=== PATIENT | female | born 1970 | race Caucasian/White ===

== ENCOUNTER 2016-10-17 22:19 | Emergency (ER) | payer MEDICAID, OTHER ==
[2016-10-17 22:23] VITALS: TEMP 97.7; O2SAT 96
--- NOTE | 2016-10-17 22:40 | EDPHY ---
H & P Stated Complaint: chest pain onset 1599 Time Seen by Provider: 10/17/16 22:32 HPI/ROS: CHIEF COMPLAINT: Chest pain. HISTORY OF PRESENT ILLNESS: The patient is a 46-year-old female who presents with upper left 9/10 chest pain since 1600 today. Chest pain is squeezing and stabbing in nature. It is worsened with deep breathing and movement and does not radiate. She has taken 2 Naproxen for the pain which did not help. The pain has been worsening since onset. She has a history of similar symptoms 2 months ago and had an echocardiogram performed. She admits back pain since yesterday. No fever, chills, cough, shortness of breath, palpitations, vomiting, diarrhea, urinary complaints, headache, lightheadedness. History obtained via family member translating at bedside. She has no significant family history. REVIEW OF SYSTEMS: Aside from elements discussed in the HPI, a comprehensive 10-point review of systems was reviewed and is negative. PAST MEDICAL HISTORY: Hypertension. SOCIAL HISTORY: Works at [employer], nonsmoker. VITAL SIGNS: Reviewed by me GENERAL: Well-developed, well-nourished, resting comfortably in no respiratory distress. HEENT: Atraumatic. Eyes: No icterus, no injection. Mouth: moist mucous membranes. No erythema or lesions. Neck: supple with no adenopathy. LUNGS: Clear to auscultation bilaterally, no wheezes, rhonchi or rales. CARDIAC: Regular rate and rhythm, no rubs, murmurs or gallops. ABDOMEN: Soft, nontender, nondistended, bowel sounds normal. BACK: No CVA tenderness. EXTREMITIES: No trauma. No edema. Range of motion is normal throughout. NEURO: Alert and oriented, grossly nonfocal. SKIN: Warm and dry, no rash. PSYCHIATRIC: Normal mentation, no agitation. Portions of this note were transcribed by a nurses medical assistants phlebotomists. I personally performed a history, physical exam, medical decision making, and confirmed accuracy of information the transcribed note. Source: Patient Exam Limitations: Language barrier - Personal History LMP (Females 10-55): Over 28 Days Ago Current Tetanus/Diphtheria Vaccine: Yes Tetanus Vaccine Date: 2010 - Medical/Surgical History Hx Asthma: No Hx Chronic Respiratory Disease: No Hx Diabetes: No Hx Cardiac Disease: No Hx Renal Disease: No Hx Cirrhosis: No Hx Alcoholism: No Hx HIV/AIDS: No Hx Splenectomy or Spleen Trauma: No Other PMH: PMHx: HTN. PSHx: Gallbladder removed - Social History Smoking Status: Never smoked Constitutional: Initial Vital Signs Temperature (C) 36.5 C 10/17/16 22:19 Heart Rate 88 10/17/16 22:19 Respiratory Rate 16 10/17/16 22:19 Blood Pressure 173/97 H 10/17/16 22:19 O2 Sat (%) 96 10/17/16 22:19 O2 Delivery Mode Room Air Allergies/Adverse Reactions: No Known Allergies Allergy (Verified 09/07/14 16:02) Home Medications: Medication Instructions Recorded Lisinopril [Zestril 5 mg (*)] 5 mg PO DAILY #30 tab 09/07/14 Medical Decision Making - Diagnostics Imaging: X-ray chest was obtained. I viewed the images myself on the PACS system. My interpretation of the images is: patient rotated. Cardiomyopathy. The radiologist interpretation is pending at this time. I discussed the x-ray findings with the patient. ED Course/Re-evaluation: An IV was established and labs ordered. Chest x-ray and EKG ordered. Patient's evaluation is reassuring. She has negative troponin despite 6 hours of pain. D-dimer is negative. Chest x-ray reveals no changes from previous. Had clear 5 with the patient again that she has in fact had an echocardiogram performed at [facility] to evaluate cardio megaly. She tells me she was called by her primary care physician about 2 weeks ago and told that everything was fine. Differential Diagnosis: After history and physical examination, the differential for chest pain was considered, including but not limited to, myocardial ischemia, acute coronary syndrome, pulmonary embolus, chest wall pain, pleural inflammation and pulmonary infectious causes. - Data Points Laboratory Results: Laboratory Results 10/17/16 23:11 10/17/16 23:11 10/17/16 23:11 WBC 8.69 10^3/uL (3.80-9.50) RBC 4.51 10^6/uL (4.18-5.33) Hgb 11.8 L g/dL (12.6-16.3) Hct 35.9 L % (38.0-47.0) MCV 79.6 L fL (81.5-99.8) MCH 26.2 L pg (27.9-34.1) MCHC 32.9 g/dL (32.4-36.7) RDW 15.0 % (11.5-15.2) Plt Count 373 10^3/uL (150-400) MPV 9.8 fL (8.7-11.7) Neut % (Auto) 58.4 % (39.3-74.2) Lymph % (Auto) 30.7 % (15.0-45.0) [place] % (Auto) 7.4 % (4.5-13.0) Eos % (Auto) 3.1 % (0.6-7.6) Baso % (Auto) 0.2 L % (0.3-1.7) Nucleat RBC Rel Count 0.0 % (0.0-0.2) Absolute Neuts (auto) 5.07 10^3/uL (1.70-6.50) Absolute Lymphs (auto) 2.67 10^3/uL (1.00-3.00) Absolute Monos (auto) 0.64 10^3/uL (0.30-0.80) Absolute Eos (auto) 0.27 10^3/uL (0.03-0.40) Absolute Basos (auto) 0.02 10^3/uL (0.02-0.10) Absolute Nucleated RBC 0.00 10^3/uL (0-0.01) Immature Gran % 0.2 % (0.0-1.1) Immature Gran # 0.02 10^3/uL (0.00-0.10) D-Dimer < 0.27 ug/mLFEU (0.00-0.50) Sodium 141 mEq/L (134-144) Potassium 3.4 L mEq/L (3.5-5.2) Chloride 105 mEq/L (97-110) Carbon Dioxide 24 mEq/l (22-31) Anion Gap 12 mEq/L (8-16) BUN 11 mg/dL (7-23) Creatinine 0.5 L mg/dL (0.6-1.0) Estimated GFR > 60 Glucose 131 H mg/dL (70-100) Calcium 8.3 L mg/dL (8.5-10.4) Total Bilirubin 0.4 mg/dL (0.1-1.4) Conjugated Bilirubin 0.2 mg/dL (0.0-0.5) Unconjugated Bilirubin 0.2 mg/dL (0.0-1.1) AST 26 IU/L (14-46) ALT 37 IU/L (9-52) Alkaline Phosphatase 83 IU/L (38-126) Troponin I < 0.012 ng/mL (0-0.034) Total Protein 7.3 g/dL (6.3-8.2) Albumin 3.8 g/dL (3.5-5.0) Lipase 142.0 IU/L (23-300) Medications Given: Discontinued Medications Aspirin (Aspirin) 324 mg PO EDNOW ONE Stop: 10/17/16 22:48 Last Admin: 10/17/16 23:15 Dose: 324 mg Ketorolac Tromethamine (Toradol) 30 mg IVP EDNOW ONE Stop: 10/17/16 22:49 Last Admin: 10/17/16 23:15 Dose: 30 mg Departure - Departure Disposition: Home, Routine, Self-Care Clinical Impression: Chest pain Qualifiers: Chest pain type: unspecified Qualifier Code: (R07.9) Chest pain, unspecified Condition: Good Instructions: Chest Pain (ED) Additional Instructions: Please follow up with your primary care physician at [facility]. You may use hydrocodone for severe pain. I recommend Ibuprofen (Motrin, Advil) or Naproxen Sodium (Aleve) for mild pain and anti-inflammatory effects. You may take either one, but do not take both. Your dose is: Ibuprofen 600 mg every 6-8 hours with food. OR Naproxen Sodium (Aleve) 220 mg every 12 hours. Please call [facility] tomorrow. Let them know that I discussed your case with Dr. Mendez, who wanted you to be seen on an urgent basis. Referrals: Adrienne Fernandez MD [Primary Care Provider] - As per Instructions Bert Mendez MD [Medical Doctor] - 1-2 days without fail (Call for an urgent appointment. Be sure they know that I discussed your course with Dr. Bert Mendez.) Report Scribed for: Sharri Shaw Report Scribed by: Gage Finney Date of Report: 10/17/16 Time of Report: 22:35
[2016-10-17] MEDS ORDERED: ASPIRIN 81 MG CHEWABLE TAB PO ONE (22:47)
[2016-10-17] MEDS ORDERED: KETOROLAC 30 MG/1 ML SDV IVP ONE (22:48)
--- NOTE | 2016-10-17 22:49 | CPEKG ---
Heart Rate: 79 RR Interval: 759 P-R Interval: 160 QRSD Interval: 94 QT Interval: 376 QTC Interval: 432 P [place]: 44 QRS [place]: 7 T Wave [place]: 33 EKG Severity - NORMAL ECG - EKG Impression: SINUS RHYTHM Electronically Signed By: Sharri Shaw 18-Oct-2016 00:11:15
[2016-10-17 23:20] LABS: % IMMATURE GRANULYOCYTES 0.2 % (0.0-1.1); ABSOLUTE IMMATURE GRANULOCYTES 0.02 10^3/uL (0.00-0.10); ADD DIFF? NO; ADD MORPH? NO; ADD SCAN? NO; ATYPICAL LYMPHOCYTE FLAG 10 (0-99); FRAGMENT RBC FLAG 0 (0-99); HEMATOCRIT 35.9 % (38.0-47.0); HEMOGLOBIN 11.8 g/dL (12.6-16.3); LEFT SHIFT FLG 0 (0-99); LIPEMIA HEMOLYSIS FLAG 80 (0-99); MEAN CELL HEMOGLOBIN 26.2 pg (27.9-34.1); MEAN CELL HEMOGLOBIN CONCENTR. 32.9 g/dL (32.4-36.7); MEAN CELL VOLUME 79.6 fL (81.5-99.8); MEAN PLATELET VOLUME 9.8 fL (8.7-11.7); PLATELET CLUMPS FLAG 0 (0-99); PLATELET COUNT 373 10^3/uL (150-400); RED BLOOD CELL COUNT 4.51 10^6/uL (4.18-5.33)
[2016-10-17 23:30] LABS: ALANINE AMINOTRANSFERASE 37 IU/L (9-52); ALBUMIN 3.8 g/dL (3.5-5.0); ALKALINE PHOSPHATASE 83 IU/L (38-126); ANION GAP 12 mEq/L (8-16); ASPARTATE AMINOTRANSFERASE 26 IU/L (14-46); BILIRUBIN,TOTAL 0.4 mg/dL (0.1-1.4); BILIRUBIN-CONJUGATED 0.2 mg/dL (0.0-0.5); BILIRUBIN-UNCONJUGATED 0.2 mg/dL (0.0-1.1); CALCIUM 8.3 mg/dL (8.5-10.4); CARBON DIOXIDE 24 mEq/l (22-31); CHLORIDE 105 mEq/L (97-110); CREATININE 0.5 mg/dL (0.6-1.0); GLOMERULAR FILTRATION RATE > 60; GLUCOSE 131 mg/dL (70-100); POTASSIUM 3.4 mEq/L (3.5-5.2); SODIUM 141 mEq/L (134-144); TOTAL PROTEIN 7.3 g/dL (6.3-8.2)
--- NOTE | 2016-10-17 23:30 | DX ---
Chest, Two Views 2229 hours History: Chest pain. Comparison: May 2016 Findings: Cardiac silhouette is within normal range. No pneumonia, congestive heart failure, pleura l effusion, or pneumothorax. Impression: No acute pulmonary disease.
[2016-10-17 23:41] LABS: TROPONIN I < 0.012 ng/mL (0-0.034)
[2016-10-18] MEDS ORDERED: HYDROCOD/APAP 5/325 PREPACK#6 BTL TAKEHOME ONE (00:04)
[2016-10-18] MEDS ORDERED: HYDROCODONE/APAP 5/325 TAB PO ONE (00:05)
[2016-10-18 00:33] VITALS: BP 133/72; PULSE 79; RESP 14
== END 2016-10-18 00:33 | disposition home or self-care (01) ==
DX: R07.9 Chest pain, unspecified (principal); I10 Essential (primary) hypertension
CPT/HCPCS: 96374; J1885

== ENCOUNTER 2017-04-06 10:55 | Emergency (ER) | payer OTHER ==
--- NOTE | 2017-04-06 11:00 | EDPHY ---
H & P HPI/ROS: HPI CHIEF COMPLAINT: Left knee pain, right shoulder pain status post mechanical trip and fall at work yesterday HISTORY OF PRESENT ILLNESS: This patient very pleasant 46-year-old female, she presents emergency room with left knee pain, right shoulder pain after she fell at work yesterday. She works at [employer]. She tripped over a box landing on her left knee. When she went to get up she pushed herself up with her right arm and felt shoulder pain. She now has left knee pain and right shoulder pain. She did take ibuprofen last night with relief. Decided come the emergency room today due to ongoing pain. She is able to ambulate without any difficulty. She has full range of motion of her left knee and right shoulder. Has pain with range of motion of both the left knee and right shoulder. No other areas of injury. Andorran-speaking only. Son at bedside speaks Montenegrin and [place]. Past Medical History: Hypertension Past Surgical History: No recent surgery Social History: Denies daily use of drugs alcohol tobacco products, lives locally, son at bedside. Family History: Noncontributory ROS REVIEW OF SYSTEMS: A comprehensive 10 point review of systems is otherwise negative aside from elements mentioned in the history of present illness. Exam Constitutional appears well nontoxic, triage nursing summary reviewed, vital signs reviewed, awake/alert. Eyes normal conjunctivae and sclera, EOMI, PERRLA. HENT normal inspection, atraumatic, moist mucus membranes, no epistaxis, neck supple/ no meningismus, no raccoon eyes. Respiratory clear to auscultation bilaterally, normal breath sounds, no respiratory distress, no wheezing. Cardiovascular rate normal, regular rhythm, no murmur, no edema, distal pulses normal. Gastrointestinal soft, non-tender, no rebound, no guarding, normal bowel sounds, no distension, no pulsatile mass. Genitourinary no CVA tenderness. Musculoskeletal tender palpation over the anterior left knee, no significant swelling, no bony crepitus, distally neurovascular intact, full range of motion , negative anterior-posterior drawer sign, no clicking, tender palpation over the lateral right shoulder with range of motion fully intact, distally neurovascular intact, axillary nerve intact, no signs of swelling. no midline vertebral tenderness, full range of motion, no calf swelling, no tenderness of extremities, no meningismus, good pulses, neurovascularly intact. Skin pink, warm, & dry, no rash, skin atraumatic. Neurologic awake, alert and oriented x 3, AAOx3, moves all 4 extremities equally, motor intact, sensory intact, CN II-XII intact, normal cerebellar, normal vision, normal speech. Psychiatric normal mood/affect. Heme/Lymph/Immune no lymphadenopathy. Differential Diagnosis: Includes but is not limited to in a particular order, knee sprain, knee contusion, right shoulder, contusion Medical Decision Making: Plan for this patient x-ray left knee, x-ray right shoulder. Ibuprofen. Ice pack. Re-evaluation: ED x-ray right shoulder: Negative for acute bony abnormality. Image interpreted by myself. ED x-ray left knee: Negative for acute bony abnormality. Image interpreted by myself. Source: Patient - Personal History Tetanus Vaccine Date: 2010 - Medical/Surgical History Hx Asthma: No Hx Chronic Respiratory Disease: No Hx Diabetes: No Hx Cardiac Disease: No Hx Renal Disease: No Hx Cirrhosis: No Hx Alcoholism: No Hx HIV/AIDS: No Hx Splenectomy or Spleen Trauma: No Other PMH: PMHx: HTN. PSHx: Gallbladder removed - Social History Smoking Status: Never smoked Constitutional: Initial Vital Signs Temperature (C) 37.2 C 04/06/17 11:01 Heart Rate 63 04/06/17 11:01 Respiratory Rate 18 04/06/17 11:01 Blood Pressure 153/73 H 04/06/17 11:01 O2 Sat (%) 97 04/06/17 11:01 O2 Delivery Mode Room Air Allergies/Adverse Reactions: No Known Allergies Allergy (Verified 04/06/17 11:00) Home Medications: Medication Instructions Recorded Lisinopril [Zestril 5 mg (*)] 5 mg PO DAILY #30 tab 09/07/14 Medical Decision Making - Data Points Medications Given: Discontinued Medications Ibuprofen (Motrin) 800 mg PO EDNOW ONE Stop: 04/06/17 11:10 Last Admin: 04/06/17 11:11 Dose: 800 mg Departure - Departure Disposition: Home, Routine, Self-Care Clinical Impression: Knee contusion Qualifiers: Encounter type: initial encounter Laterality: left Qualified Code(s): S80.02XA - Contusion of left knee, initial encounter Shoulder strain Qualifiers: Encounter type: initial encounter Laterality: right Qualified Code(s): S46.911A - Strain of unspecified muscle, fascia and tendon at shoulder and upper arm level, right arm, initial encounter Condition: Good Instructions: Contusion in Adults (ED) Additional Instructions: 1. I recommend he ice her shoulder as well as her knee. 2. You may alternate Tylenol Motrin every 6 hours for pain control. 3. Return emergency room if you have worsening symptoms questions or concerns. 4. Please follow up with her primary care doctor. Referrals: Adrienne Fernandez MD [Primary Care Provider] - As per Instructions
[2017-04-06] MEDS ORDERED: IBUPROFEN 200 MG TAB PO ONE (11:09)
[2017-04-06 12:27] VITALS: BP 146/79; PULSE 65; RESP 16; TEMP 98.6; O2SAT 96
== END 2017-04-06 12:25 | disposition home or self-care (01) ==
LOC: CED 10:55
DX: S46.911A Strain of unspecified muscle, fascia and tendon at shoulder and upper arm level, right arm, initial encounter (principal); S80.02XA Contusion of left knee, initial encounter; I10 Essential (primary) hypertension; W01.0XXA Fall on same level from slipping, tripping and stumbling without subsequent striking against object, initial encounter; Y92.69 Other specified industrial and construction area as the place of occurrence of the external cause; Y99.0 Civilian activity done for income or pay; Y93.89 Activity, other specified
CPT/HCPCS: 73030-PO; 73562-PO

== ENCOUNTER 2017-08-28 12:02 | Emergency (ER) | payer OTHER ==
[2017-08-28 12:08] VITALS: RESP 20; TEMP 98.8; O2SAT 97
[2017-08-28] MEDS ORDERED: AMOXICILLIN/CLAVULANATE POT 875/125 MG TAB PO ONE (13:15)
[2017-08-28] MEDS ORDERED: TDAP ADULT 0.5 ML INJ (BOOSTRIX) IM ONE (13:16)
[2017-08-28] MEDS ORDERED: LET GEL TOPICAL 1 EA SYR TP ONE (13:20)
--- NOTE | 2017-08-28 13:20 | EDPHY ---
General Narrative: CHIEF COMPLAINT: Cat scratch HISTORY OF PRESENT ILLNESS: Patient presents with complaints of cat scratch to the face. This happened approximately 11:00 a.m. today. She was holding her cat when it jumped and began to scratch her. Scratched her in the face, the upper lip, the right tenriism, the left ear. Significantly painful time. No minimally painful. No minimal bleeding. No injury to the eyes. No bites. This was the patient's cat and it is up-to-date on its vaccinations. The patient does not know when her last tetanus shot was. No other associated complaints or modifying factors. Patient is Cook Islander-speaking only, thus the [facility] certified Cook Islander educational speech language clinician was used for HPI, examination and MDM. TIME OF INJURY: 11:00 a.m. today TETANUS STATUS: Uncertain MEDICAL/SURGICAL/SOCIAL HISTORY: Hypertension on lisinopril REVIEW OF SYSTEMS: Ten systems reviewed and are negative unless otherwise noted in the HPI EXAMINATION General Appearance: Alert, no distress Head: normocephalic, scratches as noted below. ENT: Superficial puncture/scratch to the right side of the upper lip, involving the inner mucosa. There is no involvement of the vermilion border. Cardiovascular: Pulses normal throughout. Brisk cap refill Neurological: A&O, sensory symmetric, strength symmetric Skin: Warm and dry. There are multiple areas of abrasion to the forehead, left tenriism, left ear behind the pinna, right tenriism. There is no exposure of the subcutaneous tissue underlying muscle or galea. No foreign body. No active bleeding. Extremities: Nontender, no pedal edema DIFFERENTIAL DIAGNOSES: Including but not limited to cat scratch, cat bite MDM: 1:16 p.m. Multiple areas of cat scratch to the face, left ear and upper lip. No definite bites. She is in questionable status with her tetanus, thus we will updated here. None of these are extensive or degloving injuries. All the areas will be copiously irrigated and cleaned with Betadine solution. Tetanus updated and I will start her on Augmentin here for prophylaxis. She is not diabetic. She is not immunocompromised. 2:20 p.m. Patient's wound have now been irrigated copiously. I re-evaluated her. There are 2 lacerations on the forehead that her centrally located. They are less than 1 mm distracted. The scratch over the left pinna, posteriorly is less than 2 mm distracted. Given the nature of the injury, there is no indication for closure of this. I do feel that suture repair would increase her rate of infection. We discussed closing these lacerations with Steri-Strips. This while drainage and would here to recommendation for cat scratch treatment. We discussed the risks, benefits and alternatives. She is comfortable with this plan and with not pursuing suture repair. She will continue Augmentin therapy for 7 days total. She will contact her primary care physician for wound check early next week. We discussed ED precautions for worsening pain, headache, fever or signs of infection as discussed. This was all discussed with the [facility] certified [place]er educational speech language clinician. She is comfortable this plan and discharged home stable condition. ED Precautions: Worsening pain. Erythema, edema, cyanosis, pallor, paresthesia or anesthesia. - History Smoking Status: Never smoked - Objective Vital Signs: Initial Vital Signs Temperature (C) 98.8 F 08/28/17 12:04 Heart Rate 78 08/28/17 12:04 Respiratory Rate 20 08/28/17 12:04 Blood Pressure 124/95 H 08/28/17 12:04 O2 Sat (%) 97 08/28/17 12:04 O2 Delivery Mode Room Air Allergies/Adverse Reactions: No Known Allergies Allergy (Verified 08/28/17 12:02) Home Medications: Medication Instructions Recorded Lisinopril [Zestril 5 mg (*)] 5 mg PO DAILY #30 tab 09/07/14 Amoxicillin/Clavulanate Pot 875 mg PO BID #14 tab 08/28/17 [Augmentin 875 MG TAB (*)] Medications Given: Discontinued Medications Amoxicillin/Clavulanate Potassium (Augmentin 875mg) 875 mg PO EDNOW ONE PRN Reason: Protocol Stop: 08/28/17 13:16 Last Admin: 08/28/17 13:32 Dose: 875 mg Diphtheria/Tetanus/Acell Pertussis (Boostrix) 0.5 ml IM .ONCE ONE Stop: 08/28/17 13:17 Last Admin: 08/28/17 13:33 Dose: 0.5 ml Tetracaine/Epinephrine/Lidocaine (Let Gel Topical) 2 ea TP EDNOW ONE Stop: 08/28/17 13:21 Last Admin: 08/28/17 13:33 Dose: 2 ea Departure - Departure Disposition: Home, Routine, Self-Care Clinical Impression: Cat scratch of face Qualifiers: Encounter type: initial encounter Qualified Code(s): S00.81XA - Abrasion of other part of head, initial encounter; W55.03XA - Scratched by cat, initial encounter; W55.03XA - Scratched by cat, initial encounter Condition: Good Instructions: Animal Bite (ED) Additional Instructions: 1. Keep your wound clean, dry and covered. 2. No topical treatments to the wound other than bacitracin once daily 3. Antibiotics as prescribed to completion 4. Follow up early next week with primary care physician for wound check 5. ED precautions as discussed Referrals: Adrienne Fernandez MD [Primary Care Provider] - As per Instructions Prescriptions: Amoxicillin/Clavulanate Pot [Augmentin 875 MG TAB (*)] 875 mg PO BID #14 tab Print Language: [place] Islander
[2017-08-28 14:37] VITALS: BP 138/60; PULSE 70
== END 2017-08-28 14:37 | disposition home or self-care (01) ==
DX: S00.81XA Abrasion of other part of head, initial encounter (principal); I10 Essential (primary) hypertension; Z23 Encounter for immunization; W55.03XA Scratched by cat, initial encounter; Y99.8 Other external cause status; Y93.89 Activity, other specified

== ENCOUNTER → 2017-10-30 | Outpatient (CLI) | payer OTHER | LOC: FIMAGING 09:01 → EDSTATUS 09:20 | DX: Z12.31 Encounter for screening mammogram for malignant neoplasm of breast (principal) ==

== ENCOUNTER 2017-12-07 19:53 | Emergency (ER) | payer OTHER ==
[2017-12-07 20:05] VITALS: RESP 16; TEMP 98.2
--- NOTE | 2017-12-07 20:41 | EDPHY ---
H & P Stated Complaint: R hand pain x 1 mnth, seen pcp, today R face numb pain worse, no trauma/inj Time Seen by Provider: 12/07/17 20:45 HPI/ROS: CHIEF COMPLAINT: Right forearm, wrist, hand pain HISTORY OF PRESENT ILLNESS: This is a 47-year-old female, right-hand dominant, with over 1 month of right arm pain and numbness. She has seen her primary care physician 3 times for this problem. She has been prescribed Naprosyn and a wrist splint, neither of which have provided much relief. Pain seems to worsen since yesterday. It has been constant. She notes pain in the right forearm extending into the wrist in into the digits of her right hand. The long finger is the most painful. She also notes numbness in this distribution. She has a history of chronic neck pain, no recent change and no trauma. She did not take her antihypertensive medication today because she felt well. She believes that her doctor told her she does not need to take her antihypertensive medication if she feels okay. REVIEW OF SYSTEMS: A ten point review of systems was performed and is negative with the exception of the items mentioned in the HPI. She mentions an episode of right cheek numbness yesterday, this resolved spontaneously and has not recurred. No dental pain, no facial swelling. Past medical history: Hypertension Past surgical history: Tubal ligation Appendectomy Cholecystectomy Social history: She works as a cook at [employer]. She is accompanied by her children racquel. She does not use tobacco products or alcohol. General Appearance: Alert. Vital signs reviewed. Blood pressure 170/102 at triage. She is rubbing her right palm and forearm. ENT, Mouth: Mucous membranes are moist, no oropharyngeal erythema or edema. Neck: Nontender to palpation in the midline. No pain with active range of motion of her neck. Respiratory: Lungs are clear to auscultation; no wheezes, rales, or rhonchi. Cardiovascular: Regular rate and rhythm; no murmur, rub, or gallop. Gastrointestinal: Abdomen is soft and nontender. Skin: Warm and dry, no rashes on exposed skin, normal color. Back: Nontender to palpation over the thoracolumbar spine. Extremities: Full active range of motion of the right shoulder, elbow, and wrist. Pulses: 2+ radial pulses bilaterally. Neurological: Alert and oriented. Moving all four extremities easily and equally. Strength is 5/5 with bilateral testing of deltoids, biceps, triceps, wrist flexion, wrist extension, and residential living assistant. Sensation is intact to light touch over both upper extremities. Deep tendon reflexes are 2+ in the biceps and the triceps bilaterally. Positive Tinel's. Psychiatric: Normal affect. - Personal History Tetanus Vaccine Date: 2010 - Medical/Surgical History Hx Asthma: No Hx Chronic Respiratory Disease: No Hx Diabetes: No Hx Cardiac Disease: Yes Hx Renal Disease: No Hx Cirrhosis: No Hx Alcoholism: No Hx HIV/AIDS: No Hx Splenectomy or Spleen Trauma: No Other PMH: PMHx: HTN. PSHx: Gallbladder removed/appy - Social History Smoking Status: Never smoked Constitutional: Initial Vital Signs Temperature (C) 36.8 C 12/07/17 20:00 Heart Rate 76 12/07/17 20:00 Respiratory Rate 16 12/07/17 20:00 Blood Pressure 170/102 H 12/07/17 20:00 O2 Sat (%) 97 12/07/17 20:00 O2 Delivery Mode Room Air Allergies/Adverse Reactions: No Known Allergies Allergy (Verified 08/28/17 12:02) Home Medications: Medication Instructions Recorded Hydrochlorothiazide 12/07/17 Hydrocodone/APAP 5/325 [Alex[place]ria 1 - 2 tab PO Q4 PRN #10 tab 12/07/17 5/325 (RX)] Losartan Potassium 12/07/17 Naproxen 12/07/17 Medical Decision Making ED Course/Re-evaluation: I think that she had carpal tunnel or other nerve compression, likely due to repetitive motion. It is possible that this is a cervical radiculopathy. I do not suspect stroke. She has had no trauma. She has no history of diabetes. She is not . No known history of hypothyroidism. She is being followed for this by her primary care physician. I am going to treat her symptomatically tonight with Vicodin for pain control. I am recommending that she continue with her Naprosyn and use the Vicodin on an as needed basis for more severe pain. I would like her to try the splint again. She is hypertensive in the emergency department. She did not take her antihypertensive medication today. I have impressed upon her the importance of taking his medications daily. [place] speech language pathologist assistant was involved in her care. - Data Points Medications Given: Discontinued Medications Hydrocodone Bitart/Acetaminophen (Alexandria 5/325mg Prepack#6) 1 btl TAKEHOME EDNOW ONE Stop: 12/07/17 20:47 Last Admin: 12/07/17 20:59 Dose: 1 btl Hydrocodone Bitart/Acetaminophen (Alex[place]ria 5/325) 1 tab PO EDNOW ONE Stop: 12/07/17 20:52 Last Admin: 12/07/17 20:59 Dose: 1 tab Departure - Departure Disposition: Home, Routine, Self-Care Clinical Impression: Carpal tunnel syndrome Qualifiers: Laterality: right Qualified Code(s): G56.01 - Carpal tunnel syndrome, right upper limb Hypertension Qualifiers: Hypertension type: essential hypertension Qualified Code(s): I10 - Essential ( primary) hypertension Condition: Good Instructions: Hydrocodone/Acetaminophen (By mouth), Hypertension (ED) Additional Instructions: Continue the naproxen. Use the Alexandria as needed for severe pain. This is an opiate pain medications you cannot take it when driving or engage in otherwise potentially dangerous activities. It will treat the pain but does not make the underlying problem any better. Follow up with Dr. Fernandez next week. Call the office tomorrow to arrange an appointment. Let the office know that you were seen in the emergency department. - Continue con Naproxen - Use el Alexandria a columba lo necesite para dolor daniela. Liliana es un medicamento opi general maintenance engineer no lo puede sanchez si va a manejar o a desempear otras actividades potencialmente peligrosas. Tratara el dolor wale no mejora el problemas principal. - Portillo barron cassandra de seguimiento con lorene Fernandez la proxima semana. Llame a la oficina maana para hacer la cassandra. Digales que vino a la arun de emergencia. Referrals: Adrienne Fernandez MD [Primary Care Provider] - As per Instructions Stand Alone Forms: Work Excuse Prescriptions: Hydrocodone/APAP 5/325 [Alexandria 5/325 (RX)] 1 - 2 tab PO Q4 PRN #10 tab PRN Reason: pain Print Language: [place]an
[2017-12-07] MEDS ORDERED: HYDROCOD/APAP 5/325 PREPACK#6 BTL TAKEHOME ONE (20:46)
[2017-12-07] MEDS ORDERED: HYDROCODONE/APAP 5/325 TAB PO ONE (20:51)
[2017-12-07 21:55] VITALS: BP 161/86; PULSE 74; O2SAT 94
== END 2017-12-07 21:54 | disposition home or self-care (01) ==
DX: G56.01 Carpal tunnel syndrome, right upper limb (principal); I10 Essential (primary) hypertension

== ENCOUNTER 2019-02-01 12:40 | Emergency (ER) | payer OTHER ==
[2019-02-01] MEDS ORDERED: LORazepam 2 MG/ML INJ IVP ONE (12:56)
[2019-02-01] MEDS ORDERED: NS 1,000 ML IV ONE (12:56)
--- NOTE | 2019-02-01 12:59 | EDPHY ---
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 She states that this happens to her almost daily but is more severe today than usual. She attended a today. She states that she has not been able to sleep well for the last few days because of anxiety. She has no known cardiac or pulmonary disease. She denies shortness of breath. She denies diaphoresis or nausea. No abdominal pain, no GI symptoms. No recent fevers or infections. She describes the pain as a anxious feeling not is a pain pressure or burning. Severity: Moderate Modifying factors: None REVIEW OF SYSTEMS: Constitutional: denies: chills, fever, recent illness, recent injury EENTM: denies: blurred vision, double vision, nose congestion Respiratory: denies: cough, shortness of breath Cardiac: See HPI denies: chest pain, irregular heart rate, lightheadedness, palpitations Gastrointestinal/Abdominal: denies: abdominal pain, diarrhea, nausea, vomiting, blood streaked stools Genitourinary: denies: dysuria, frequency, hematuria, pain Musculoskeletal: denies: joint pain, muscle pain Skin: denies: lesions, rash, jaundice, bruising Neurological: denies: headache, numbness, paresthesia, tingling, dizziness, weakness Hematologic/Lymphatic: denies: blood clots, easy bleeding, easy bruising Immunologic/allergic: denies: HIV/AIDS, transplant 10 systems reviewed and negative except as noted EXAM: GENERAL: Tearful, anxious, moderate distress. HEAD: Atraumatic, normocephalic. EYES: Pupils equal round and reactive to light, extraocular movements intact, sclera anicteric, conjunctiva are normal. ENT: TMs normal, nares patent, oropharynx clear without exudates. Moist mucous membranes. NECK: Normal range of motion, supple without lymphadenopathy or JVD. LUNGS: Breath sounds clear to auscultation bilaterally and equal. No wheezes rales or rhonchi. HEART: Regular rate and rhythm without murmurs, rubs or gallops. ABDOMEN: Soft, nontender, normoactive bowel sounds. No guarding, no rebound. No masses appreciated. BACK: No CVA tenderness, no spinal tenderness, step-offs or deformities EXTREMITIES: Normal range of motion, no pitting or edema. No clubbing or cyanosis. NEUROLOGICAL: Cranial nerves II through XII grossly intact. Normal speech, normal gait. 5/5 strength, normal movement in all extremities, normal sensation , normal reflexes PSYCH: Normal mood, normal affect. SKIN: Warm, dry, normal turgor, no visible rashes or lesions. Source: Patient Exam Limitations: Language barrier (Yarn Washer used) - Personal History LMP (Females 10-55): Unknown Current Tetanus/Diphtheria Vaccine: Yes Current Tetanus Diphtheria and Acellular Pertussis (TDAP): Yes Tetanus Vaccine Date: 2010 - Medical/Surgical History Hx Asthma: No Hx Chronic Respiratory Disease: No Hx Diabetes: No Hx Cardiac Disease: Yes Hx Renal Disease: No Hx Cirrhosis: No Hx Alcoholism: No Hx HIV/AIDS: No Hx Splenectomy or Spleen Trauma: No Other PMH: PMHx: HTN. PSHx: Gallbladder removed/appy - Family History Significant Family History: No pertinent family hx - Social History Smoking Status: Never smoked Alcohol Use: Sober Drug Use: None Constitutional: Initial Vital Signs Temperature (C) 36.9 C 02/01/19 12:40 Heart Rate 80 02/01/19 12:40 Respiratory Rate 16 02/01/19 12:40 Blood Pressure 164/94 H 02/01/19 12:40 O2 Sat (%) 96 02/01/19 12:40 O2 Delivery Mode Room Air Allergies/Adverse Reactions: No Known Allergies Allergy (Verified 08/28/17 12:02) Home Medications: Medication Instructions Recorded Hydrochlorothiazide 12/07/17 Hydrocodone/APAP 5/325 [[place] 1 - 2 tab PO Q4 PRN #10 tab 12/07/17 5/325 (RX)] Losartan Potassium 12/07/17 Naproxen 12/07/17 LORazepam [Ativan 1 mg (RX)] 1 mg PO Q6-8PRN PRN #10 tab 02/01/19 Medical Decision Making - Diagnostics EKG Interpretation: An EKG obtained and was read and documented in trace view. Please see trace view for full reading and report. Sinus rhythm, no acute ischemic changes similar to previous Imaging Results: Imaging Impressions Chest X-Ray 02/01/19 12:56 Impression: Stable mild cardiomegaly since 2016. Nothing acute identified. Results discussed with Dr. Stein at 1:30 PM. Imaging: Discussed imaging studies w/ party plan salesperson Radiologist ED Course/Re-evaluation: 1:25 p.m. the patient is feeling much better after Ativan. She is somewhat sleepy. Her lab work is all reassuring. Her EKG is unchanged. Chest x-ray is normal. We discussed options. She feels like this is primary anxiety in this does fit with the history. Engaged in shared decision making. She does not wish to have further testing. Will continue to observe until she is more awake and discharge at that time. Differential Diagnosis: Partial list of the Differential diagnosis considered include but were not limited to; anxiety, panic attack, GERD and although unlikely based on the history and physical exam, I also considered acute coronary disease, PE, pneumonia, pneumothorax, trauma, dissection. I discussed these differential diagnoses and the plan with the patient as well as the usual and expected course. The patient understands that the diagnosis is provisional and that in medicine we are not always correct and that further workup is often warranted. Usual and customary warnings were given. All of the patient's questions were answered. The patient was instructed to return to the emergency department should the symptoms at all worsen or return, otherwise to followup with the physician as we discussed. - Data Points Laboratory Results: Laboratory Results 02/01/19 12:55 02/01/19 12:55 02/01/19 02/01/19 02/01/19 13:00 12:55 12:55 WBC RBC Hgb Hct MCV MCH MCHC RDW Plt Count MPV Neut % (Auto) Lymph % (Auto) [place] % (Auto) Eos % (Auto) Baso % (Auto) Nucleat RBC Rel Count Absolute Neuts (auto) Absolute Lymphs (auto) Absolute Monos (auto) Absolute Eos (auto) Absolute Basos (auto) Absolute Nucleated RBC Immature Gran % Immature Gran # D-Dimer < 0.27 ug/mLFEU ug/mLFEU (0.00-0.50) Sodium 139 mEq/L mEq/L (135-145) Potassium 3.4 mEq/L L mEq/L (3.5-5.2) Chloride 106 mEq/L mEq/L (97-110) Carbon Dioxide 26 mEq/l mEq/l (22-31) Anion Gap 7 mEq/L mEq/L (6-14) BUN 15 mg/dL mg/dL (7-23) Creatinine 0.5 mg/dL L mg/dL (0.6-1.0) Estimated GFR > 60 Glucose 101 mg/dL H mg/dL (70-100) Calcium 9.5 mg/dL mg/dL (8.5-10.4) Total Bilirubin 0.4 mg/dL mg/dL (0.1-1.4) Conjugated Bilirubin 0.2 mg/dL mg/dL (0.0-0.5) Unconjugated Bilirubin 0.2 mg/dL mg/dL (0.0-1.1) AST 21 IU/L IU/L (14-46) ALT 44 IU/L IU/L (9-52) Alkaline Phosphatase 99 IU/L IU/L (38-126) POC Troponin I 0.01 ng/mL ng/mL (0.00-0.08) Total Protein 7.9 g/dL g/dL (6.3-8.2) Albumin 4.3 g/dL g/dL (3.5-5.0) Lipase 133 IU/L IU/L (23-300) 02/01/19 12:55 WBC 9.34 10^3/uL 10^3/uL (3.80-9.50) RBC 4.88 10^6/uL 10^6/uL (4.18-5.33) Hgb 13.3 g/dL g/dL (12.6-16.3) Hct 41.0 % % (38.0-47.0) MCV 84.0 fL fL (81.5-99.8) MCH 27.3 pg L pg (27.9-34.1) MCHC 32.4 g/dL g/dL (32.4-36.7) RDW 13.5 % % (11.5-15.2) Plt Count 367 10^3/uL 10^3/uL (150-400) MPV 10.0 fL fL (8.7-11.7) Neut % (Auto) 54.9 % % (39.3-74.2) Lymph % (Auto) 36.6 % % (15.0-45.0) [place] % (Auto) 6.5 % % (4.5-13.0) Eos % (Auto) 1.5 % % (0.6-7.6) Baso % (Auto) 0.2 % L % (0.3-1.7) Nucleat RBC Rel Count 0.0 % % (0.0-0.2) Absolute Neuts (auto) 5.12 10^3/uL 10^3/uL (1.70-6.50) Absolute Lymphs (auto) 3.42 10^3/uL H 10^3/uL (1.00-3.00) Absolute Monos (auto) 0.61 10^3/uL 10^3/uL (0.30-0.80) Absolute Eos (auto) 0.14 10^3/uL 10^3/uL (0.03-0.40) Absolute Basos (auto) 0.02 10^3/uL 10^3/uL (0.02-0.10) Absolute Nucleated RBC 0.00 10^3/uL 10^3/uL (0-0.01) Immature Gran % 0.3 % % (0.0-1.1) Immature Gran # 0.03 10^3/uL 10^3/uL (0.00-0.10) D-Dimer Sodium Potassium Chloride Carbon Dioxide Anion Gap BUN Creatinine Estimated GFR Glucose Calcium Total Bilirubin Conjugated Bilirubin Unconjugated Bilirubin AST ALT Alkaline Phosphatase POC Troponin I Total Protein Albumin Lipase Medications Given: Discontinued Medications Sodium Chloride (Ns) 1,000 mls @ 0 mls/hr IV EDNOW ONE; Wide Open PRN Reason: Protocol Stop: 02/01/19 12:57 Last Admin: 02/01/19 13:07 Dose: 1,000 mls Lorazepam (Ativan Injection) 1 mg IVP EDNOW ONE Stop: 02/01/19 12:57 Last Admin: 02/01/19 13:07 Dose: 1 mg Point of Care Test Results: Chemistry 02/01/19 13:00 POC Troponin I 0.01 ng/mL ng/mL (0.00-0.08) Departure - Departure Disposition: Home, Routine, Self-Care Clinical Impression: Chest pain, Panic attack Condition: Fair Instructions: Chest Pain (ED), Panic Attack (ED) Additional Instructions: Se le entrego barron receta para LORazepam [Ataivan 1 miligramo] tome 1 miligramo oral cada 6 a 8 horas silva necesite para ansiedad/inquietud/insomnio. Programe cassandra de seguimiento con rubi doctora de shelley Fernandez para dentro de 2-3 keller Referrals: Adrienne Fernandez MD [Primary Care Provider] - 2-3 days, call for appt. Dolores Salazar MD [Medical Doctor] - As per Instructions Prescriptions: LORazepam [Ativan 1 mg (RX)] 1 mg PO Q6-8PRN PRN #10 tab PRN Reason: *Anxiety/Agitation/Insomnia
[2019-02-01 13:09] LABS: PLATELET COUNT 367 10^3/uL (150-400)
--- NOTE | 2019-02-01 13:22 | CPEKG ---
Test Reason : OPEN Blood Pressure : / mmHG Vent. Rate : 072 BPM Atrial Rate : 070 BPM P-R Int : 163 ms QRS Dur : 102 ms QT Int : 371 ms P-R-T Axes : 066 030 041 degrees QTc Int : 406 ms Sinus rhythm Confirmed by Kwesi Stein ([id number]) on 02/01/2019 1:21:45 PM Referred By: Kwesi Stein Confirmed By:Kwesi Stein
[2019-02-01 13:45] VITALS: BP 131/86
--- NOTE | 2019-02-10 16:47 | CPEKG ---
Test Reason : OPEN Blood Pressure : / mmHG Vent. Rate : 063 BPM Atrial Rate : 064 BPM P-R Int : 167 ms QRS Dur : 101 ms QT Int : 406 ms P-R-T Axes : 033 026 009 degrees QTc Int : 416 ms Sinus rhythm Confirmed by Mariano Max ([id number]) on 02/10/2019 4:47:29 PM Referred By: Kwesi Stein Confirmed By:Mariano Max
== END 2019-02-01 13:47 | disposition home or self-care (01) ==
DX: R07.9 Chest pain, unspecified (principal); F41.0 Panic disorder [episodic paroxysmal anxiety]; E86.9 Volume depletion, unspecified
CPT/HCPCS: 84484-ER; 96374; J2060